=== PATIENT | female | born 1955 | race Caucasian/White ===

== ENCOUNTER 2022-11-11 21:34 | Emergency (ER) | payer BC ==
[~2022-11-11] VITALS: Ht 167.6 cm; Wt 97.5 kg
[2022-11-11 22:18] LABS: HEMATOCRIT 37.6 % (31.2-41.9); MEAN CORPUSCULAR HEMOGLOBIN 30.7 uug (24.7-32.8); MEAN CORPUSCULAR VOLUME 91.9 fL (75.5-95.3); PLATELET COUNT (AUTO) 239 K/uL (179-408)
[2022-11-11 22:31] LABS: CREATININE 0.7 mg/dL (0.6-1.3); MAGNESIUM 1.9 mg/dL (1.8-2.4); POTASSIUM 3.9 mmol/L (3.5-5.1)
[2022-11-11 22:55] VITALS: BP 145/95
--- NOTE | 2022-11-11 22:55 | NUR ---
Patient discharged to home in stable condition. Written and verbal after care instructions given. Patient verbalizes understanding of instructions. Stressed follow up or return to ER for worsening s/s. Provided with copies of lab results. Pt out of ER with steady gait, no acute signs of distress, VSS, all belongings taken.
== END 2022-11-11 22:55 | disposition home or self-care (01) ==
LOC: ER 22:14
DX: K40.30 Unilateral inguinal hernia, with obstruction, without gangrene, not specified as recurrent (principal); R03.0 Elevated blood-pressure reading, without diagnosis of hypertension; Z96.653 Presence of artificial knee joint, bilateral
CPT/HCPCS: 36415; 83735; 85025; A4663